=== PATIENT | female | born 1960 ===

== ENCOUNTER 2019-07-17 09:21 | Emergency (ER) | payer OTHER ==
[~2019-07-17] VITALS: Ht 154.9 cm; Wt 68.0 kg
[2019-07-17] MEDS ORDERED: NITROGLYCERIN0.4 MG SL (12:43)
--- NOTE | 2019-07-18 11:46 | EKG ---
[facility] [address] [facility] [place], [place] [address] Signed Normal sinus rhythm Low voltage QRS Borderline ECG No previous ECGs available Confirmed by ARRON ASHER DO ([id number]) on 07/18/2019 11:46:29 AM Electronically Signed By: ARRON ASHER DO 07/18/19 1146 PATIENT NAME: OWEN RANDLE Electrocardiogram DATE OF : 64 PHYSICIAN: ARRON ASHER DO REPORT #: [id number] REPORT IS CONFIDENTIAL AND NOT TO BE RELEASED WITHOUT AUTHORIZATION
== END 2019-07-17 13:00 | disposition home or self-care (01) ==
LOC: ED 09:21
DX: R07.9 Chest pain, unspecified (principal); F17.200 Nicotine dependence, unspecified, uncomplicated
CPT/HCPCS: 71045; 80053; 83735; 84484; 85025; 85379; 93005; 93010; 99285-25; 99406

== ENCOUNTER 2019-11-01 06:20 | Day surgery (SDC) | payer OTHER ==
[~2019-11-01] VITALS: Ht 154.9 cm; Wt 6810.7 kg
[~2019-11-01 06:20] MED LIST: NITROGLYCERIN0.4 MG SL
--- NOTE | 2019-11-01 08:22 | NUR ---
11/01/19 0822 Emily Jules 0819 PATIENT ARRIVES TO PACU SLEEPING, RESPONDS TO REPEATED VERBAL STIMULI. RESP EVEN AND UNLABORED, NC AT 3 LITERS. PATIENT BACK TO SLEEP WHEN NOT STIMULATED.
--- NOTE | 2019-11-01 10:06 | OR ---
[facility] [address] [place], [place] [address] Signed DATE OF OPERATION: 11/01/2019 SURGEON: Arie Qiu MD PREOPERATIVE DIAGNOSIS: Screening. POSTOPERATIVE DIAGNOSES: 1. Minimal sigmoid diverticulosis. 2. Minimal to moderate internal hemorrhoids. PROCEDURE: Colonoscopy without biopsy. ESTIMATED BLOOD LOSS: None. 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 She happens to live in [place]. She came as a referral from her primary care provider for her initial screening colonoscopy. She has no lower GI complaints. There is no family history of colon cancer or polyps. In the office, I gave her a pamphlet on colonoscopy and we looked at that together along with the risks including, but not limited to gas bloating, crampy abdominal pain, bleeding, perforation requiring surgery, and missed diagnosis. She understands bowel preps quite well having been licensed practical nurse. We went through our bowel prep page by page. She also understands the need for IV conscious sedation. She had expressed understanding and wished to proceed. DESCRIPTION OF PROCEDURE: Balbina was taken into our endoscopy suite and placed in the left lateral decubitus position. She was given a total of 6 mg of Versed and 150 mcg of fentanyl to cover the case. She has a mildly long colon and it took some extra sedation and abdominal compression in order to advance the scope. Her prep was quite excellent. We could easily see the appendiceal orifice. The ileocecal valve was well visualized. The scope was slowly withdrawn. We took pictures throughout for photodocumentation. She has moderate-sized diverticula in the sigmoid colon. However, they are few in number, and scattered about. The rectum was unremarkable. Upon retroflexion of scope, we could see she has minimal to moderate internal hemorrhoid columns. After this, the gas was suctioned out and the colonoscope removed. Balbina tolerated the procedure quite well. Electronically Signed By: ARIE QIU MD 11/01/19 1006 PATIENT NAME: BALBINA RANDLE OPERATIVE REPORT DATE OF : 64 REPORT #: [id number] PHYSICIAN: ARIE QIU MD PCP: PEYTON SOTO MD REPORT IS CONFIDENTIAL AND NOT TO BE RELEASED WITHOUT AUTHORIZATION [address] [address] Signed RECOMMENDATIONS: Balbina can follow up in 10 years for repeat colonoscopy. Arie Qiu MD ALB/MODL /[id number] cc: MD Arie Lay MD Copies: ARIE QIU MD ~ Electronically Signed By: ARIE QIU MD 11/01/19 1006 PATIENT NAME: BALBINA RANDLE OPERATIVE REPORT DATE OF : 64 REPORT #: [id number] PHYSICIAN: ARIE QIU MD PCP: PEYTON SOTO MD REPORT IS CONFIDENTIAL AND NOT TO BE RELEASED WITHOUT AUTHORIZATION
--- NOTE | 2019-11-01 13:24 | NUR ---
PT IS ALERT, ORIENTED AND HERE FOR HER FIRST SCOPE. PT SEEMS TO EXPERIENCE PREP APPROPRIATELY, FEW QUESTIONS ASKED AND ANSWERED. EXTENDED A BLESSING.
== END 2019-11-01 09:10 | disposition home or self-care (01) ==
LOC: OPS 06:20 → DS 06:20 → OPS 06:45 → DS 06:45 → OPS 09:10
PROVIDERS: Colon & Rectal Surgery
PROC: 0DJD8ZZ Inspection of Lower Intestinal Tract, Via Natural or Artificial Opening Endoscopic (ICD-10-PCS; principal; 2019-11-01 06:45)
DX: Z12.11 Encounter for screening for malignant neoplasm of colon (principal); K64.8 Other hemorrhoids; K57.30 Diverticulosis of large intestine without perforation or abscess without bleeding
CPT/HCPCS: 99153; G0500; J2250; J3010; J7121